=== PATIENT | male | born 1960 | race Caucasian/White ===

== ENCOUNTER 2023-08-21 14:01 | Emergency (ER) | payer OTHER ==
--- NOTE | 2023-08-21 15:43 | ED Physician Documentation ---
History of Present Illness - Stated complaint Stated Complaint: DOUBLE VISION/BLURRY - Chief complaint Chief Complaint: Heent - History obtained from History obtained from: Patient - Additonal information Additional information: 62-year-old male who reports no significant past medical history presents with a sudden onset of double vision that occurred at about 1300 today. The patient was sitting at his computer and in his usual state of health when he had a sudden onset of double vision primarily in the lower half of his vision. If he looks upwards he feels like he can see fairly well but when he looks down he has double vision. He denies any eye pain, no headache, no facial numbness or weakness no speech difficulties no extremity weakness or numbness. He states the vision changes are somewhat disorienting but he has not had any confusion. 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 He does not wear any corrective lenses or contacts. Review of Systems Constitutional: reports: Reviewed and negative Eyes: reports: Decreased vision (Double vision bilaterally), Other Ears: reports: Reviewed and negative Nose: reports: Reviewed and negative Throat: reports: Reviewed and negative Cardiac: reports: Reviewed and negative Respiratory: reports: Reviewed and negative GI: reports: Reviewed and negative : reports: Reviewed and negative Skin: reports: Reviewed and negative Musculoskeletal: reports: Reviewed and negative Neurologic: reports: Reviewed and negative Endocrine: reports: Reviewed and negative PD PAST MEDICAL HISTORY - Past Medical History Past Medical History: No Cardiovascular: None Respiratory: None Neuro: None Endocrine/Autoimmune: None GI: None : None HEENT: None Psych: None Musculoskeletal: None Derm: None - Past Surgical History Past Surgical History: No - Present Medications Home Medications: Ambulatory Orders Medication Instructions Recorded Confirmed No Known Home Medications 08/21/23 08/21/23 - Allergies Allergies/Adverse Reactions: Allergies Allergy/AdvReac Type Severity Reaction Status Date / Time No Known Drug Allergies Allergy Verified 08/21/23 14:08 - Social History Does the pt smoke?: No Smoking Status: Never smoker Does the pt drink ETOH?: No Does the pt have substance abuse?: No - Immunizations Immunizations are current?: Yes PD ED PE NORMAL - Vitals Vital signs reviewed: Yes - General General: Alert and oriented X 3, No acute distress, Well developed/nourished - HEENT HEENT: Atraumatic, PERRL, EOMI, Ears normal, Moist mucous membranes, Pharynx benign - Neck Neck: Supple, no meningeal sign, No JVD - Cardiac Cardiac: RRR, No murmur - Respiratory Respiratory: No respiratory distress, Clear bilaterally - Abdomen Abdomen: Normal bowel sounds, Soft, Non tender, Non distended - Derm Derm: Normal color, Warm and dry - Neuro Neuro: Alert and oriented X 3, 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, No motor deficit, No sensory deficit, Normal speech, Other (NIH 0; double vision bilateral lower visual nuñez) Eye Opening: Spontaneous Motor: Obeys Commands Verbal: Oriented GCS Score: 15 Results - Vitals Vitals: Vital Signs - 24 hr 08/21/23 08/21/23 08/21/23 14:08 14:46 15:10 Temperature 36.5 C Heart Rate 72 77 84 Respiratory 16 16 15 Rate Blood Pressure 150/82 H 107/81 H 141/91 H O2 Saturation 98 98 99 08/21/23 08/21/23 15:54 17:00 Temperature Heart Rate 81 Respiratory 16 17 Rate Blood Pressure 140/82 H 132/72 H O2 Saturation 100 99 Oxygen O2 Source Room air - Labs Labs: Laboratory Tests 08/21/23 08/21/23 15:50 15:50 WBC 6.7 RBC 5.49 Hgb 16.7 Hct 49.5 MCV 90.2 MCH 30.4 MCHC 33.7 RDW 13.1 Plt Count 195 MPV 9.1 Neut # (Auto) 4.7 Lymph # (Auto) 1.4 L [place] # (Auto) 0.5 Eos # (Auto) 0.1 Baso # (Auto) 0.0 Absolute Nucleated RBC 0.00 Nucleated RBC % 0.0 Sodium 140 Potassium 3.7 Chloride 104 Carbon Dioxide 30 Anion Gap 6.0 BUN 20 Creatinine 1.2 Estimated GFR (MDRD) 62 L Glucose 90 Calcium 9.7 Total Bilirubin 0.6 AST 20 ALT 26 Alkaline Phosphatase 73 Troponin I High Sens 3.5 Total Protein 6.9 Albumin 4.5 Globulin 2.4 Albumin/Globulin Ratio 1.9 Lipase 60 - Rads (name of study) No standard instances Relevant Findings:: Final report received PD Medical Decision Making - ED course Complexity details: reviewed results, re-evaluated patient, considered differential, d/w patient, d/w family ED course: Very nice 62-year-old gentleman presented with acute onset double vision earlier today as described in HPI. It started about 1 PM and spontaneously resolved as patient laid down for CT scan. He arrived back from CT scan with absolutely no double vision and no other symptoms. On physical exam he had no acute neurologic changes, he had no facial nerve palsy or ocular motor nerve palsy, he had a normal EOMs. It is not clear what caused his transient diplopia, possibly a nerve palsy or muscle issue but it appears to have completely resolved. I did obtain a CT head and CTA of head and neck which were reassuring and no signs of stroke though low suspicion for this, his CBC and CMP are also stable. 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 Departure - Departure Disposition: 01 Home, Self Care Clinical Impression: Diplopia Condition: Good Instructions: ED Double Vision Comments: Darwin, your CT scans today were both reassuring. You do not have signs of stroke and most often diplopia or double vision is caused by a eye muscle issue or a nerve palsy. As your symptoms completely resolved, I do think you are stable for discharge home. Your labs today are stable. I would like you to see your eye doctor soon as possible for an evaluation. If you have recurrence of symptoms, return to the ER. Forms: PCP List
[2023-08-21 16:05] LABS: BASOPHILS % (AUTO) 0.6 %; EOSINOPHILS # (AUTO) 0.1 10^3/uL (0.0-0.7); EOSINOPHILS % (AUTO) 0.7 %; HCT - HEMATOCRIT 49.5 % (42.0-52.0); HGB - HEMOGLOBIN 16.7 g/dL (14.0-18.0); LYMPHOCYTES # (AUTO) 1.4 10^3/uL (1.5-3.5); LYMPHOCYTES % (AUTO) 20.4 %; MEAN CORPUSCULAR HEMOGLOBIN 30.4 pg (27.0-31.0); MEAN CORPUSCULAR HGB CONC 33.7 g/dL (32.0-36.0); MEAN CORPUSCULAR VOLUME 90.2 fL (80.0-94.0); MEAN PLATELET VOLUME 9.1 fL (7.4-11.4); MONOCYTES # (AUTO) 0.5 10^3/uL (0.0-1.0); MONOCYTES % (AUTO) 7.4 %; NEUTROPHILS # (AUTO) 4.7 10^3/uL (1.5-6.6); NEUTROPHILS % (AUTO) 69.6 %; PLT - PLATELET COUNT 195 10^3/uL (130-450); RED BLOOD COUNT 5.49 10^6/uL (4.70-6.10); RED CELL DISTRIBUTION WIDTH 13.1 % (12.0-15.0); WHITE BLOOD COUNT 6.7 x10^3/uL (4.8-10.8)
--- NOTE | 2023-08-21 16:21 | CT Report ---
PROCEDURE: Head W/O Stroke Protocol INDICATIONS: double vision since 1pm TECHNIQUE: Noncontrast 4.5 mm thick angled axial sections acquired from the foramen magnum to the vertex, with c oronal reformats. For radiation dose reduction, the following was used: automated exposure control, adjustment of mA and/or kV according to patient size. COMPARISON: None. FINDINGS: Image quality: Excellent. CSF spaces: Basal cisterns are patent. No extra-axial fluid collections. Ventricles are normal in size and shape. Image quality: Diagnostic CSF spaces: Basal cisterns are patent. Lateral ventricles are symmetric. Volume: Vascular calcifications. Periventricular white matter disease is commonly seen with chronic m icroangiopathy. Volume loss is present. These findings are mild. Brain: No intracranial hemorrhage. Hale-white differentiation is grossly maintained. Craniofacial structures: Small paranasal sinus mucous cysts. No significant paranasal sinus opacifica tion. IMPRESSION: No acute intracranial hemorrhage. Report called to . This study fulfills neurological imaging criteria for inclusion or exclusion of acute stroke therapie s based on available published neurological imaging guidelines. Reviewed by: Maged Perdue MD on 08/21/2023 4:19 PM PST Approved by: Maged Perdue MD on 08/21/2023 4:19 PM PST Station ID: [id number]
[2023-08-21 16:24] LABS: TROPONIN I HIGH SENSITIVITY 3.5 ng/L (2.3-19.7)
[2023-08-21 16:27] LABS: ALBUMIN 4.5 g/dL (3.2-5.5); ALBUMIN/GLOBULIN RATIO 1.9 (1.0-2.2); BILIRUBIN,TOTAL 0.6 mg/dL (0.2-1.0); CALCIUM 9.7 mg/dL (8.5-10.3); CREATININE 1.2 mg/dL (0.6-1.3); POTASSIUM 3.7 mmol/L (3.5-4.5); TOTAL PROTEIN 6.9 g/dL (6.4-8.9)
--- NOTE | 2023-08-21 17:02 | CT Report ---
PROCEDURE: CT Angio Head/Neck INDICATIONS: double vision 1pm TECHNIQUE: After the administration of intravenous contrast, 1 mm thick sections acquired from the aortic arch t hrough the [place] [facility] [place]. 3-dimensional sibnjmb-hkzhlndad-ipprrvdghv (MIP) and/or volume renderin g reformats were acquired of the central intracranial vasculature and neck separately. For radiation dose reduction, the following was used: automated exposure control, adjustment of mA and/or kV acco rding to patient size. CONTRAST: IV contrast COMPARISON: Same-day CT head FINDINGS: Image quality: Suboptimal. There is overlying the shoulders area. The contrast bolus timing was also suboptimal with significant venous contamination. Head angiography Anterior circulation: ICAs: normal and symmetric ACAs: normal and symmetric MCAs: normal and symmetric AComm: no aneurysm Venous sinuses: Patent where visualized. 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 ICA origins (by NASCET criteria): no hemodynamically significant narrowing. ICAs: no stenosis, occlusion or aneurysm. ECAs: origins are patent. Vertebral arteries: unremarkable Soft tissues: no significant mass, aneurysm, or lymphadenopathy. Possible left supraorbital soft tiss ue contusion Lung apices: no pneumothorax Bones: no acute or suspicious abnormality. IMPRESSION: No large vessel occlusion or high-grade stenosis. If there is high concern for infarct, consider MRI. Possible left supraorbital soft tissue contusion. The estimate of stenosis included in the report of the imaging study was calculated using the NASCET method Reviewed by: Maged Perdue MD on 08/21/2023 5:01 PM PST Approved by: Maged Perdue MD on 08/21/2023 5:01 PM PST Station ID: [id number]
[2023-08-21 17:04] VITALS: O2SAT 99
[2023-08-21 17:47] VITALS: BP 140/82
[2023-08-21] MEDS ORDERED: iohexoL-300 100 ML VIAL IVP ONE (18:42)
== END 2023-08-21 17:38 | disposition home or self-care (01) ==
LOC: ED 14:01
DX: H53.2 Diplopia (principal)
CPT/HCPCS: 36415; 70450; 70496; 70498; 80053; 83690; 84484; 85025; 99283; 99284; Q9967